=== PATIENT | male | born 1960 | race African-American/Black ===

== ENCOUNTER 2020-09-03 15:14 | Inpatient (IN) ==
[2020-09-03] MEDS ORDERED: ONDANSETRON 4 MG/2 ML VIAL IV STA (16:59)
[2020-09-03] MEDS ORDERED: SODIUM CHLORIDE 0.9% 1,000 ML IV STA (16:59)
[2020-09-03 17:47] LABS: Basophils % 0.2 % (0.0-0.8); Hemoglobin 10.3 GM/DL (14.0-18.0); Immature Granulocytes % 2.1 %; Immature Granulocytes Absolute 0.28 #; Lymphocytes # 1.5 10*3/uL (1.4-4.0); Lymphocytes % 11.3 % (21.2-54.2); Mean Corpuscular HGB Conc 34.3 GM/DL (32-36); Mean Platelet Volume 10.3 FL (9.6-12.0); Monocytes % 7.5 % (1.7-12.7); NRBC # 0.03 10*3/uL; Neutrophils % 78.9 % (38.7-73.9); Platelet Count 98 T/CUMM (130-400); Red Blood Count 2.94 MC/CUMM (3.8-5.5); Red Cell Distribution Width 14.3 % (9.3-17.3); White Blood Count 13.2 T/CUMM (4-12)
[2020-09-03 18:06] LABS: Albumin 3.2 G/DL (3.4-5.0); Bilirubin,Total 5.1 MG/DL (0.2-1.0); Calcium 9.2 MG/DL (8.5-10.1); Osmolality,Calculated 268.1 MOS/KG (273-304); Total Protein 8.6 G/DL (6.4-8.2)
[2020-09-03 18:11] LABS: Potassium 2.1 MMOL/L (3.5-5.1)
[2020-09-03 18:12] LABS: Band Neutrophils 4 % (0-10); Eosinophils 1 % (0-10); Lymphocytes 14 % (20-55); Segmented Neutrophils 79 % (50-85); Total Cells Counted 100
[2020-09-03 18:13] LABS: Hypochromasia 1+; Platelet Estimate Decreased; Target Cells Few
[2020-09-03] MEDS ORDERED: POTASSIUM CHLORIDE 20 MEQ TABLET PO STA (18:14)
[2020-09-03] MEDS ORDERED: THIAMINE INJ 100 MG, FOLIC ACID INJ 1 MG, MULTIVITAMIN INJ 10 ML in SODIUM CHLORIDE 0.9... IV ONE (19:07)
[2020-09-03] MEDS ORDERED: LORazepam 2 MG/1 ML VIAL IV PRN (19:37)
[2020-09-03] MEDS ORDERED: HYDROmorphone 2 MG/1 ML VIAL IV PRN (19:42)
[2020-09-03] MEDS ORDERED: ONDANSETRON 4 MG/2 ML VIAL IV PRN (19:42)
[2020-09-03] MEDS ORDERED: DEXTROSE 50% 25 GM/50 ML VIAL IV PRN (19:42)
[2020-09-03] MEDS ORDERED: GLUCAGON 1 MG VIAL IM PRN (19:42)
[2020-09-03 20:31] LABS: Amorphous Crystals,Urine Occasional /HPF (Few); Bilirubin,Urine Small mg/dL (Negative); Blood, Urine Large mg/dL (Negative); Glucose,Urine (UA) Negative (Negative); Hyaline Casts,Urine 60 /LPF (0-3); Ketones,Urine 5 mg/dL (Negative); Mucus,Urine Occasional /LPF (Occasional); Nitrite,Urine Negative (Negative); Protein,Urine 100 MG/DL; RBC,Urine 17 /HPF (0-4); Squamous Epithelial Cell,Urine Few /HPF (0-10); Urine Appearance CLOUDY (Clear); Urine Color Amber (Yellow); Urine Specific Gravity 1.017 (1.001-1.035)
[2020-09-03] MEDS: LORazepam 2 MG/1 ML VIAL IV SCH (20:35)
[2020-09-03] MEDS ORDERED: MAGNESIUM SULF RIDER 4 GM/100 ML PREMIX IV ONE (21:00)
[2020-09-03] MEDS ORDERED: ENOXAPARIN 30 MG/0.3 ML SYRINGE SUBCUT SCH (21:00)
[2020-09-03] MEDS: THIAMINE 200 MG/2 ML VIAL IV SCH (22:21)
[2020-09-03] MEDS: TAMSULOSIN 0.4 MG CAPSULE PO SCH (22:21)
[2020-09-03] MEDS: DEXT 5% NACL 0.9% KCL 20 MEQ 20 MEQ/1,000 ML BAG IV SCH (22:21)
[2020-09-03] MEDS: cloNIDine 0.2 MG/24 HR PATCH TRANSDERM SCH (22:24)
[2020-09-04] MEDS: LORazepam 2 MG/1 ML VIAL IV SCH ×6 (00:11→20:23)
[2020-09-04] MEDS: PIPERACILLIN/TAZOBACTAM 3,375 MG in SODIUM CHLORIDE 0.9% 100 ML IV SCH ×4 (00:26→20:25)
[2020-09-04 07:48] LABS: Osmolality,Calculated 272.2 MOS/KG (273-304)
[2020-09-04 07:50] LABS: Calcium 8.7 MG/DL (8.5-10.1)
[2020-09-04 07:52] LABS: Bilirubin,Direct 3.5 MG/DL (0.0-0.20); Bilirubin,Indirect 1.2 MG/DL (0.0-1.0); Bilirubin,Total 4.7 MG/DL (0.2-1.0)
[2020-09-04 08:00] LABS: Basophils % 0.1 % (0.0-0.8); Eosinophils % 0.2 % (0.00-10.9); Hematocrit 28.2 VOL% (42.0-52.0); Hemoglobin 9.8 GM/DL (14.0-18.0); Immature Granulocytes % 1.3 %; Immature Granulocytes Absolute 0.12 #; Lymphocytes # 1.3 10*3/uL (1.4-4.0); Lymphocytes % 13.9 % (21.2-54.2); Mean Corpuscular HGB Conc 34.8 GM/DL (32-36); Mean Corpuscular Volume 98.6 FL (87-102); Mean Platelet Volume 9.5 FL (9.6-12.0); NRBC # 0.03 10*3/uL; Neutrophils % 75.5 % (38.7-73.9); Platelet Count 82 T/CUMM (130-400); Red Blood Count 2.86 MC/CUMM (3.8-5.5); Red Cell Distribution Width 13.9 % (9.3-17.3); White Blood Count 9.3 T/CUMM (4-12)
[2020-09-04] MEDS ORDERED: POTASSIUM CHLORIDE 20 MEQ TABLET PO ONE (08:05)
[2020-09-04 08:07] LABS: INR 1.7; PT Patient Result 18.3 SECS (10.5-12.0)
[2020-09-04 08:20] LABS: Band Neutrophils 2 % (0-10); Hypochromasia 1+; Lymphocytes 17 % (20-55); Microcytosis 1+; Nucleated Red Blood Cells 2 (0-5); Platelet Estimate Decreased; Segmented Neutrophils 77 % (50-85); Total Cells Counted 100
[2020-09-04 08:20] LABS: % Iron Saturation 87.3 % (18-50); Ferritin 3473.3 ng/ml (26-388)
[2020-09-04 09:13] LABS: Sedimentation Rate-Westergren 89 MM/HR (0-20)
[2020-09-04 09:38] LABS: Vitamin B12 1450 PG/ML (211-911)
[2020-09-04] MEDS: THIAMINE 200 MG/2 ML VIAL IV SCH ×2 (09:54→22:48)
[2020-09-04] MEDS: DEXT 5% NACL 0.9% KCL 40 MEQ 40 MEQ/1,000 ML BAG IV SCH (09:55)
[2020-09-04] MEDS: FOLIC ACID INJ 1 MG in SYRINGE 1 EACH IV SCH (12:51)
[2020-09-04 14:14] LABS: Calcium 8.3 MG/DL (8.5-10.1)
[2020-09-04 14:16] LABS: Osmolality,Calculated 279.4 MOS/KG (273-304)
[2020-09-04 14:22] LABS: Potassium 2.2 MMOL/L (3.5-5.1)
[2020-09-04] MEDS ORDERED: POTASSIUM CHLORIDE 20 MEQ/15 ML UDCUP PO ONE (14:26)
[2020-09-04] MEDS: INSULIN LISPRO 100 UNIT/ML SUBCUT SCH ×2 (16:53→21:45)
[2020-09-04 19:14] LABS: Calcium 8.3 MG/DL (8.5-10.1); Osmolality,Calculated 279.1 MOS/KG (273-304)
[2020-09-04 19:16] LABS: Potassium 2.4 MMOL/L (3.5-5.1)
[2020-09-04] MEDS: TAMSULOSIN 0.4 MG CAPSULE PO SCH (20:23)
[2020-09-04] MEDS: LACTULOSE 20 GM/30 ML UDCUP PO SCH (20:23)
[2020-09-04] MEDS: POTASSIUM CHLORIDE RIDER 10 MEQ/100 ML PREMIX IV PRN ×2 (22:34→23:51)
[2020-09-05] MEDS: LORazepam 2 MG/1 ML VIAL IV SCH ×2 (00:20→04:55)
[2020-09-05] MEDS: DEXT 5% NACL 0.9% KCL 40 MEQ 40 MEQ/1,000 ML BAG IV SCH ×5 (00:56→21:45)
[2020-09-05] MEDS: POTASSIUM CHLORIDE RIDER 10 MEQ/100 ML PREMIX IV PRN ×4 (00:57→23:58)
[2020-09-05 02:50] LABS: Basophils % 0.1 % (0.0-0.8); Eosinophils % 0.2 % (0.00-10.9); Immature Granulocytes % 1.3 %; Immature Granulocytes Absolute 0.11 #; Lymphocytes # 1.3 10*3/uL (1.4-4.0); Lymphocytes % 15.1 % (21.2-54.2); Mean Corpuscular Volume 97.3 FL (87-102); Mean Platelet Volume 10.3 FL (9.6-12.0); Monocytes % 12.6 % (1.7-12.7); NRBC # 0.04 10*3/uL; Neutrophils % 70.7 % (38.7-73.9); Platelet Count 66 T/CUMM (130-400); Red Blood Count 2.57 MC/CUMM (3.8-5.5); Red Cell Distribution Width 14.2 % (9.3-17.3); White Blood Count 8.7 T/CUMM (4-12)
[2020-09-05 03:08] LABS: Osmolality,Calculated 284.8 MOS/KG (273-304); Potassium 2.9 MMOL/L (3.5-5.1)
[2020-09-05 03:20] LABS: Band Neutrophils 2 % (0-10); Hypochromasia Slight; Lymphocytes 14 % (20-55); Platelet Estimate Decreased; Segmented Neutrophils 77 % (50-85); Total Cells Counted 100
[2020-09-05] MEDS: PIPERACILLIN/TAZOBACTAM 3,375 MG in SODIUM CHLORIDE 0.9% 100 ML IV SCH (05:49)
[2020-09-05] MEDS ORDERED: POTASSIUM CHLORIDE 20 MEQ/15 ML UDCUP PO ONE (08:34)
[2020-09-05] MEDS: FOLIC ACID INJ 1 MG in SYRINGE 1 EACH IV SCH (09:09)
[2020-09-05 09:11] LABS: Immunoglobulin A (Chem) 312 MG/DL (70-400); Immunoglobulin G (Chem) 2780 MG/DL (700-1600); Immunoglobulin M (Chem) 362 MG/DL (40-230)
[2020-09-05] MEDS: THIAMINE 200 MG/2 ML VIAL IV SCH (09:18)
[2020-09-05] MEDS: PANTOPRAZOLE 40 MG VIAL IV SCH (09:31)
[2020-09-05 09:50] LABS: ABG Base Excess 4.2 MMOL/L (-2.5-2.5); ABG HCO3 28.2 MMOL/L (20-26); ABG Oxygen Saturation 94.8 % (95-100); ABG PH 7.483 (7.35-7.45); ABG TCO2 25.5 MMOL/L (23-27)
[2020-09-05] MEDS: LACTULOSE 20 GM/30 ML UDCUP PO SCH ×4 (10:44→21:40)
[2020-09-05] MEDS: CIPROFLOXACIN INJ 400 MG/200 ML PREMIX IV SCH (10:44)
[2020-09-05 12:24] LABS: Soluble Transf Receptor (sTfR) 2.5 mg/L (1.8 - 4.6)
[2020-09-05] MEDS: INSULIN LISPRO 100 UNIT/ML SUBCUT SCH ×4 (12:28→21:40)
[2020-09-05] MEDS: metroNIDAZOLE INJ 500 MG/100 ML PREMIX IV SCH ×2 (13:25→21:40)
[2020-09-05 15:00] LABS: Calcium 8.2 MG/DL (8.5-10.1); Osmolality,Calculated 283.7 MOS/KG (273-304); Potassium 3.1 MMOL/L (3.5-5.1)
[2020-09-05] MEDS: DEXT 5% NACL 0.9% KCL 20 MEQ 20 MEQ/1,000 ML BAG IV SCH ×2 (20:17→21:42)
[2020-09-05] MEDS: THIAMINE 100 MG TABLET PO SCH (21:40)
[2020-09-05] MEDS: TAMSULOSIN 0.4 MG CAPSULE PO SCH (21:40)
[2020-09-06] MEDS: POTASSIUM CHLORIDE RIDER 10 MEQ/100 ML PREMIX IV PRN ×3 (01:01→03:02)
[2020-09-06] MEDS: metroNIDAZOLE INJ 500 MG/100 ML PREMIX IV SCH ×3 (05:39→22:18)
[2020-09-06] MEDS: DEXT 5% NACL 0.9% KCL 40 MEQ 40 MEQ/1,000 ML BAG IV SCH ×2 (05:39→10:22)
[2020-09-06 06:27] LABS: Basophils % 0.2 % (0.0-0.8); Eosinophils % 0.7 % (0.00-10.9); Hematocrit 23.1 VOL% (42.0-52.0); Hemoglobin 8.1 GM/DL (14.0-18.0); Immature Granulocytes Absolute 0.06 #; Lymphocytes # 1.1 10*3/uL (1.4-4.0); Lymphocytes % 17.4 % (21.2-54.2); Mean Corpuscular HGB Conc 35.1 GM/DL (32-36); Mean Platelet Volume 10.2 FL (9.6-12.0); Monocytes % 13.6 % (1.7-12.7); NRBC # 0.02 10*3/uL; Neutrophils % 67.1 % (38.7-73.9); Red Blood Count 2.31 MC/CUMM (3.8-5.5); Red Cell Distribution Width 15.1 % (9.3-17.3)
[2020-09-06 06:37] LABS: Platelet Count 58 T/CUMM (130-400)
[2020-09-06 06:41] LABS: Calcium 7.7 MG/DL (8.5-10.1); Osmolality,Calculated 298.6 MOS/KG (273-304); Total Protein 6.3 G/DL (6.4-8.2)
[2020-09-06 06:47] LABS: Hypochromasia 1+; Microcytosis 1+; Platelet Estimate Decreased
[2020-09-06] MEDS: PANTOPRAZOLE 40 MG VIAL IV SCH (09:32)
[2020-09-06] MEDS: INSULIN LISPRO 100 UNIT/ML SUBCUT SCH ×4 (10:21→21:26)
[2020-09-06] MEDS: THIAMINE 100 MG TABLET PO SCH ×2 (10:22→21:25)
[2020-09-06] MEDS: LACTULOSE 20 GM/30 ML UDCUP PO SCH ×3 (10:23→21:25)
[2020-09-06] MEDS: CIPROFLOXACIN INJ 400 MG/200 ML PREMIX IV SCH (10:55)
[2020-09-06 11:33] LABS: INR 1.9
[2020-09-06 12:56] LABS: Calcium 7.8 MG/DL (8.5-10.1); Osmolality,Calculated 298.6 MOS/KG (273-304); Potassium 3.9 MMOL/L (3.5-5.1)
[2020-09-06] MEDS: DEXT 5% NACL 0.45% KCL 20 MEQ 20 MEQ/1,000 ML BAG IV SCH (13:28)
[2020-09-06] MEDS: FOLIC ACID 1 MG TABLET PO SCH (13:30)
[2020-09-06] MEDS: SODIUM CHLORIDE 0.9% 1,000 ML IV SCH (14:44)
[2020-09-06 18:11] LABS: Calcium 7.8 MG/DL (8.5-10.1); Potassium 3.7 MMOL/L (3.5-5.1)
[2020-09-06] MEDS: TAMSULOSIN 0.4 MG CAPSULE PO SCH (21:25)
[2020-09-07] MEDS: DEXT 5% NACL 0.45% KCL 20 MEQ 20 MEQ/1,000 ML BAG IV SCH ×3 (01:39→18:39)
[2020-09-07] MEDS: metroNIDAZOLE INJ 500 MG/100 ML PREMIX IV SCH ×3 (06:04→23:10)
[2020-09-07 07:40] LABS: Basophils % 0.3 % (0.0-0.8); Eosinophils # 0.1 10*3/uL (0.0-0.87); Eosinophils % 1.7 % (0.00-10.9); Hematocrit 27.1 VOL% (42.0-52.0); Immature Granulocytes % 1.7 %; Immature Granulocytes Absolute 0.11 #; Lymphocytes # 1.5 10*3/uL (1.4-4.0); Lymphocytes % 23.2 % (21.2-54.2); Mean Corpuscular HGB Conc 33.2 GM/DL (32-36); Mean Corpuscular Volume 103.4 FL (87-102); Mean Platelet Volume 10.7 FL (9.6-12.0); Monocytes % 17.9 % (1.7-12.7); NRBC # 0.03 10*3/uL; Neutrophils % 55.2 % (38.7-73.9); Platelet Count 71 T/CUMM (130-400); Red Blood Count 2.62 MC/CUMM (3.8-5.5); Red Cell Distribution Width 15.7 % (9.3-17.3); White Blood Count 6.4 T/CUMM (4-12)
[2020-09-07 07:51] LABS: INR 1.8; PT Patient Result 19.3 SECS (10.5-12.0)
[2020-09-07] MEDS ORDERED: SODIUM CHLORIDE 0.9% 1,000 ML IV SCH (08:00)
[2020-09-07 08:02] LABS: Band Neutrophils 3 % (0-10); Eosinophils 2 % (0-10); Hypochromasia 1+; Lymphocytes 17 % (20-55); Microcytosis 1+; Promyelocytes 1 %; Segmented Neutrophils 68 % (50-85); Total Cells Counted 100
[2020-09-07 08:03] LABS: Platelet Estimate Decreased; Target Cells Few
[2020-09-07 08:09] LABS: Albumin 2.1 G/DL (3.4-5.0); Bilirubin,Total 3.5 MG/DL (0.2-1.0); Calcium 8.1 MG/DL (8.5-10.1); Total Protein 6.5 G/DL (6.4-8.2)
[2020-09-07 08:10] LABS: Osmolality,Calculated 287.1 MOS/KG (273-304); Potassium 3.8 MMOL/L (3.5-5.1)
[2020-09-07] MEDS: INSULIN LISPRO 100 UNIT/ML SUBCUT SCH ×4 (09:20→21:15)
[2020-09-07] MEDS: SODIUM CHLORIDE 0.9% 1,000 ML IV SCH (09:21)
[2020-09-07] MEDS: FOLIC ACID 1 MG TABLET PO SCH (09:22)
[2020-09-07] MEDS: THIAMINE 100 MG TABLET PO SCH ×2 (09:22→21:14)
[2020-09-07] MEDS: LACTULOSE 20 GM/30 ML UDCUP PO SCH ×3 (09:22→21:14)
[2020-09-07] MEDS: PANTOPRAZOLE 40 MG VIAL IV SCH (09:46)
[2020-09-07] MEDS: CIPROFLOXACIN INJ 400 MG/200 ML PREMIX IV SCH (09:46)
[2020-09-07] MEDS ORDERED: BISACODYL 5 MG TABLET PO ONE (12:00)
[2020-09-07] MEDS ORDERED: LIDOCAINE 2% 5 ML VIAL ONE (14:27)
[2020-09-07] MEDS ORDERED: ETOMIDATE 20 MG/10 ML VIAL IV ONE (14:27)
[2020-09-07] MEDS ORDERED: PHENYLEPHRINE 1 MG/10 ML SYRINGE IV ONE (14:27)
[2020-09-07] MEDS ORDERED: POLYETHYLENE GLYCOL POWDER 255 GM BOTTLE PO ONE (18:00)
[2020-09-07] MEDS: TAMSULOSIN 0.4 MG CAPSULE PO SCH (21:14)
[2020-09-08] MEDS: metroNIDAZOLE INJ 500 MG/100 ML PREMIX IV SCH ×3 (05:28→21:14)
[2020-09-08] MEDS: DEXT 5% NACL 0.45% KCL 20 MEQ 20 MEQ/1,000 ML BAG IV SCH ×2 (05:28→14:25)
[2020-09-08] MEDS ORDERED: MAGNESIUM CITRATE 300 ML BOTTLE PO ONE (06:00)
[2020-09-08 06:31] LABS: Basophils % 0.3 % (0.0-0.8); Eosinophils % 0.4 % (0.00-10.9); Hematocrit 23.9 VOL% (42.0-52.0); Hemoglobin 7.9 GM/DL (14.0-18.0); Immature Granulocytes % 1.5 %; Immature Granulocytes Absolute 0.11 #; Lymphocytes # 1.5 10*3/uL (1.4-4.0); Lymphocytes % 21.4 % (21.2-54.2); Mean Corpuscular HGB Conc 33.1 GM/DL (32-36); Mean Platelet Volume 10.2 FL (9.6-12.0); Monocytes % 21.6 % (1.7-12.7); NRBC # 0.03 10*3/uL; Neutrophils % 54.8 % (38.7-73.9); Platelet Count 73 T/CUMM (130-400); Red Blood Count 2.32 MC/CUMM (3.8-5.5); Red Cell Distribution Width 15.9 % (9.3-17.3); White Blood Count 7.1 T/CUMM (4-12)
[2020-09-08 06:38] LABS: INR 1.8; PT Patient Result 19.8 SECS (10.5-12.0)
[2020-09-08 06:52] LABS: Lymphocytes 25 % (20-55); Nucleated Red Blood Cells 1 (0-5); Segmented Neutrophils 62 % (50-85); Total Cells Counted 100
[2020-09-08 06:53] LABS: Anisocytosis 1+; Bilirubin,Total 3.4 MG/DL (0.2-1.0); Calcium 7.6 MG/DL (8.5-10.1); Hypochromasia 1+; Microcytosis 1+; Osmolality,Calculated 286.1 MOS/KG (273-304); Potassium 3.8 MMOL/L (3.5-5.1); Total Protein 5.8 G/DL (6.4-8.2)
[2020-09-08 06:54] LABS: Platelet Estimate Decreased; Target Cells Slight
[2020-09-08] MEDS: INSULIN LISPRO 100 UNIT/ML SUBCUT SCH ×4 (07:21→21:14)
[2020-09-08 08:14] LABS: Calcium 7.7 MG/DL (8.5-10.1); Osmolality,Calculated 286.3 MOS/KG (273-304); Potassium 3.5 MMOL/L (3.5-5.1)
[2020-09-08] MEDS: LACTULOSE 20 GM/30 ML UDCUP PO SCH ×3 (08:24→21:14)
[2020-09-08] MEDS: THIAMINE 100 MG TABLET PO SCH ×2 (08:24→21:13)
[2020-09-08] MEDS: PANTOPRAZOLE 40 MG VIAL IV SCH (08:29)
[2020-09-08] MEDS: CIPROFLOXACIN INJ 400 MG/200 ML PREMIX IV SCH (10:04)
[2020-09-08] MEDS: LACTATED RINGERS 1,000 ML IV SCH (12:59)
[2020-09-08] MEDS ORDERED: LIDOCAINE 2% 5 ML VIAL ONE (14:15)
[2020-09-08] MEDS ORDERED: propofoL 200 MG/20 ML VIAL IV ONE ×2 (14:15→14:53)
[2020-09-08] MEDS ORDERED: ETOMIDATE 20 MG/10 ML VIAL IV ONE ×2 (14:16→15:01)
[2020-09-08] MEDS: FOLIC ACID 1 MG TABLET PO SCH (15:47)
[2020-09-08] MEDS: TAMSULOSIN 0.4 MG CAPSULE PO SCH (21:13)
[2020-09-09 05:57] LABS: Basophils % 0.3 % (0.0-0.8); Eosinophils # 0.1 10*3/uL (0.0-0.87); Eosinophils % 0.8 % (0.00-10.9); Hematocrit 24.4 VOL% (42.0-52.0); Hemoglobin 8.3 GM/DL (14.0-18.0); Immature Granulocytes % 2.9 %; Immature Granulocytes Absolute 0.19 #; Lymphocytes # 1.5 10*3/uL (1.4-4.0); Lymphocytes % 23.1 % (21.2-54.2); Mean Corpuscular Volume 101.2 FL (87-102); Mean Platelet Volume 9.9 FL (9.6-12.0); Monocytes % 21.4 % (1.7-12.7); NRBC # 0.02 10*3/uL; Neutrophils % 51.5 % (38.7-73.9); Platelet Count 85 T/CUMM (130-400); Red Blood Count 2.41 MC/CUMM (3.8-5.5); Red Cell Distribution Width 15.9 % (9.3-17.3); White Blood Count 6.5 T/CUMM (4-12)
[2020-09-09] MEDS: metroNIDAZOLE INJ 500 MG/100 ML PREMIX IV SCH ×3 (06:02→22:02)
[2020-09-09 06:22] LABS: Albumin 1.9 G/DL (3.4-5.0); Bilirubin,Total 2.5 MG/DL (0.2-1.0); Calcium 7.5 MG/DL (8.5-10.1); Osmolality,Calculated 284.1 MOS/KG (273-304); Potassium 3.2 MMOL/L (3.5-5.1); Total Protein 6.1 G/DL (6.4-8.2)
[2020-09-09] MEDS: INSULIN LISPRO 100 UNIT/ML SUBCUT SCH ×4 (07:32→20:45)
[2020-09-09] MEDS: POTASSIUM CHLORIDE 20 MEQ TABLET PO PRN ×4 (07:41→15:03)
[2020-09-09 08:06] LABS: Eosinophils 3 % (0-10); Lymphocytes 23 % (20-55); Segmented Neutrophils 58 % (50-85); Total Cells Counted 100
[2020-09-09 08:07] LABS: Atypical Lymphocytes Few; Platelet Estimate Adequate
[2020-09-09 08:08] LABS: Target Cells Slight
[2020-09-09] MEDS: PANTOPRAZOLE 40 MG VIAL IV SCH (09:44)
[2020-09-09] MEDS: FOLIC ACID 1 MG TABLET PO SCH (09:44)
[2020-09-09] MEDS: THIAMINE 100 MG TABLET PO SCH ×2 (09:44→20:55)
[2020-09-09] MEDS: CIPROFLOXACIN INJ 400 MG/200 ML PREMIX IV SCH (09:45)
[2020-09-09] MEDS: LACTATED RINGERS 1,000 ML IV SCH (10:36)
[2020-09-09] MEDS: LACTULOSE 20 GM/30 ML UDCUP PO SCH ×3 (10:36→21:05)
[2020-09-09] MEDS: DEXT 5% NACL 0.45% KCL 20 MEQ 20 MEQ/1,000 ML BAG IV SCH (10:44)
[2020-09-09] MEDS ORDERED: TUBERCULIN SKIN TEST 0.1 ML SYRINGE INTRADERM ONE (14:20)
[2020-09-09] MEDS: TAMSULOSIN 0.4 MG CAPSULE PO SCH (20:56)
[2020-09-10 05:39] LABS: Basophils % 0.3 % (0.0-0.8); Eosinophils # 0.1 10*3/uL (0.0-0.87); Eosinophils % 0.7 % (0.00-10.9); Hematocrit 24.9 VOL% (42.0-52.0); Hemoglobin 8.3 GM/DL (14.0-18.0); Immature Granulocytes % 2.1 %; Immature Granulocytes Absolute 0.16 #; Lymphocytes # 1.9 10*3/uL (1.4-4.0); Lymphocytes % 24.5 % (21.2-54.2); Mean Corpuscular HGB Conc 33.3 GM/DL (32-36); Mean Corpuscular Volume 102.9 FL (87-102); Mean Platelet Volume 9.8 FL (9.6-12.0); Monocytes % 22.1 % (1.7-12.7); Neutrophils % 50.3 % (38.7-73.9); Platelet Count 134 T/CUMM (130-400); Red Blood Count 2.42 MC/CUMM (3.8-5.5); White Blood Count 7.7 T/CUMM (4-12)
[2020-09-10] MEDS: metroNIDAZOLE INJ 500 MG/100 ML PREMIX IV SCH (05:51)
[2020-09-10 06:01] LABS: Albumin 1.9 G/DL (3.4-5.0); Bilirubin,Total 2.8 MG/DL (0.2-1.0); Calcium 7.5 MG/DL (8.5-10.1); Osmolality,Calculated 282.1 MOS/KG (273-304); Potassium 3.6 MMOL/L (3.5-5.1); Total Protein 6.2 G/DL (6.4-8.2)
[2020-09-10] MEDS: DEXT 5% NACL 0.45% KCL 20 MEQ 20 MEQ/1,000 ML BAG IV SCH (06:48)
[2020-09-10 06:53] LABS: Eosinophils 1 % (0-10); Lymphocytes 12 % (20-55); Macrocytosis Slight; Metamyelocytes 1 %; Nucleated Red Blood Cells 1 (0-5); Platelet Estimate Adequate; Segmented Neutrophils 69 % (50-85); Total Cells Counted 100
[2020-09-10] MEDS: INSULIN LISPRO 100 UNIT/ML SUBCUT SCH ×4 (07:33→22:27)
[2020-09-10] MEDS: CIPROFLOXACIN INJ 400 MG/200 ML PREMIX IV SCH (09:03)
[2020-09-10] MEDS: THIAMINE 100 MG TABLET PO SCH ×2 (09:03→22:26)
[2020-09-10] MEDS: LACTULOSE 20 GM/30 ML UDCUP PO SCH ×3 (09:03→22:28)
[2020-09-10] MEDS: FOLIC ACID 1 MG TABLET PO SCH (09:04)
[2020-09-10] MEDS: POTASSIUM CHLORIDE 20 MEQ TABLET PO PRN ×2 (09:04→11:30)
[2020-09-10] MEDS: cloNIDine 0.2 MG/24 HR PATCH TRANSDERM SCH (09:05)
[2020-09-10] MEDS: LACTATED RINGERS 1,000 ML IV SCH (09:47)
[2020-09-10] MEDS ORDERED: LIDOCAINE 1% 20 ML VIAL MISC INJ ONE (10:40)
[2020-09-10] MEDS ORDERED: ACETAMINOPHEN 325 MG TABLET PO PRN (11:16)
[2020-09-10] MEDS: PANTOPRAZOLE 40 MG VIAL IV SCH (11:30)
[2020-09-10] MEDS: TAMSULOSIN 0.4 MG CAPSULE PO SCH (22:27)
[2020-09-11 05:23] LABS: Basophils % 0.4 % (0.0-0.8); Eosinophils # 0.1 10*3/uL (0.0-0.87); Eosinophils % 0.9 % (0.00-10.9); Hemoglobin 8.4 GM/DL (14.0-18.0); Immature Granulocytes % 2.6 %; Immature Granulocytes Absolute 0.21 #; Lymphocytes % 24.2 % (21.2-54.2); Mean Corpuscular HGB Conc 33.6 GM/DL (32-36); Mean Corpuscular Volume 102.9 FL (87-102); Mean Platelet Volume 9.9 FL (9.6-12.0); NRBC # 0.02 10*3/uL; Neutrophils % 51.9 % (38.7-73.9); Platelet Count 146 T/CUMM (130-400); Red Blood Count 2.43 MC/CUMM (3.8-5.5); Red Cell Distribution Width 15.8 % (9.3-17.3); White Blood Count 8.1 T/CUMM (4-12)
[2020-09-11 05:48] LABS: Calcium 7.6 MG/DL (8.5-10.1); Osmolality,Calculated 275.5 MOS/KG (273-304); Potassium 3.5 MMOL/L (3.5-5.1)
[2020-09-11 06:06] LABS: Eosinophils 1 % (0-10); Hypochromasia 1+; Lymphocytes 13 % (20-55); Nucleated Red Blood Cells 1 (0-5); Platelet Estimate Normal; Segmented Neutrophils 77 % (50-85); Total Cells Counted 100
[2020-09-11] MEDS: LACTATED RINGERS 1,000 ML IV SCH (08:00)
[2020-09-11] MEDS: INSULIN LISPRO 100 UNIT/ML SUBCUT SCH ×4 (09:13→20:53)
[2020-09-11] MEDS ORDERED: MAGNESIUM SULF RIDER 4 GM/100 ML PREMIX IV ONE (09:30)
[2020-09-11] MEDS: FOLIC ACID 1 MG TABLET PO SCH (09:58)
[2020-09-11] MEDS: THIAMINE 100 MG TABLET PO SCH ×2 (09:58→21:56)
[2020-09-11] MEDS: PANTOPRAZOLE 40 MG VIAL IV SCH (09:59)
[2020-09-11] MEDS: LACTULOSE 20 GM/30 ML UDCUP PO SCH ×3 (10:50→21:57)
[2020-09-11] MEDS: TAMSULOSIN 0.4 MG CAPSULE PO SCH (21:55)
[2020-09-12 04:36] LABS: Basophils % 0.2 % (0.0-0.8); Eosinophils # 0.1 10*3/uL (0.0-0.87); Eosinophils % 0.6 % (0.00-10.9); Hematocrit 24.5 VOL% (42.0-52.0); Hemoglobin 8.1 GM/DL (14.0-18.0); Immature Granulocytes % 1.2 %; Immature Granulocytes Absolute 0.11 #; Lymphocytes # 1.8 10*3/uL (1.4-4.0); Lymphocytes % 19.7 % (21.2-54.2); Mean Corpuscular HGB Conc 33.1 GM/DL (32-36); Mean Corpuscular Volume 102.9 FL (87-102); Mean Platelet Volume 9.7 FL (9.6-12.0); Monocytes % 13.6 % (1.7-12.7); NRBC # 0.02 10*3/uL; Neutrophils % 64.7 % (38.7-73.9); Platelet Count 150 T/CUMM (130-400); Red Blood Count 2.38 MC/CUMM (3.8-5.5); Red Cell Distribution Width 15.5 % (9.3-17.3)
[2020-09-12 04:58] LABS: Bilirubin,Total 2.2 MG/DL (0.2-1.0); Calcium 7.6 MG/DL (8.5-10.1); Osmolality,Calculated 272.7 MOS/KG (273-304); Potassium 3.2 MMOL/L (3.5-5.1); Total Protein 6.4 G/DL (6.4-8.2)
[2020-09-12 05:01] LABS: Eosinophils 1 % (0-10); Hypochromasia 1+; Lymphocytes 13 % (20-55); Microcytosis 1+; Nucleated Red Blood Cells 1 (0-5); Platelet Estimate Adequate; Segmented Neutrophils 76 % (50-85); Total Cells Counted 100
[2020-09-12] MEDS: INSULIN LISPRO 100 UNIT/ML SUBCUT SCH ×2 (06:48→13:15)
[2020-09-12] MEDS: LACTATED RINGERS 1,000 ML IV SCH (08:00)
[2020-09-12] MEDS: PANTOPRAZOLE 40 MG VIAL IV SCH (09:26)
[2020-09-12] MEDS: LACTULOSE 20 GM/30 ML UDCUP PO SCH (09:26)
[2020-09-12] MEDS: FOLIC ACID 1 MG TABLET PO SCH (09:26)
[2020-09-12] MEDS: THIAMINE 100 MG TABLET PO SCH (09:26)
[2020-09-12 11:45] VITALS: BP 125/69
[2020-09-12] MEDS: POTASSIUM CHLORIDE 20 MEQ TABLET PO PRN (13:09)
== END 2020-09-12 14:25 | disposition home or self-care (01) | DRG 438 ==
LOC: N.ED 15:14 → SUATTDRO 19:33 → N.EDINP 19:33 → N.3E 19:55
PROVIDERS: ADMIT Hospitalist; ATTEND Internal Medicine